=== PATIENT | male | born 1985 | race Two or more races ===

== ENCOUNTER 2024-01-17 16:09 | Emergency (ER) | payer OTHER ==
[~2024-01-17] VITALS: Ht 172.7 cm; Wt 108.9 kg
[2024-01-17] MEDS: MAGNESIUM HYDROXIDE 30 ML UDC PO ONE (17:00)
[2024-01-17] MEDS: BISACODYL SUPP (10 MG) 10 MG/SUPP.RECT SUPP.RECT RC ONE (17:00)
[2024-01-17] MEDS: NA PHOS,M-B/NA PHOS,DI-BA 1 EA ENEMA RC ONE (17:00)
[2024-01-17] MEDS: POLYETHYLENE GLYCOL 3350 17 GM POWD.PACK PO ONE (17:00)
[2024-01-17] MEDS ORDERED: MAGNESIUM HYDROXIDE 30 ML UDC ONE (17:15)
[2024-01-17] MEDS ORDERED: MINERAL OIL 133 ML (PYXIS) 1 EA ENEMA RC ONE (17:15)
[2024-01-17] MEDS ORDERED: SENNOSIDES 8.6 MG TABLET ONE ×2 (17:15→17:42)
[2024-01-17] MEDS ORDERED: BISACODYL SUPP (10 MG) 10 MG/SUPP.RECT SUPP.RECT RC ONE (17:16)
[2024-01-17] MEDS: SENNOSIDES/DOCUSATE SODIUM 1 TAB TABLET PO SCH (17:33)
[2024-01-17] MEDS ORDERED: SENN1TAB77 PO (19:47)
[2024-01-17] MEDS ORDERED: POLY17PO4 PO (19:47)
[2024-01-17] MEDS ORDERED: MAGN296S72 PO (19:47)
[2024-01-17 20:16] VITALS: BP 135/76; TEMP 98; O2SAT 98
== END 2024-01-17 20:18 | disposition home or self-care (01) ==
LOC: ER 16:16
DX: K59.00 Constipation, unspecified (principal); R10.9 Unspecified abdominal pain